=== PATIENT | female | born 2000 | race African-American/Black ===

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

== ENCOUNTER 2019-06-23 18:19 | Emergency (ER) | payer MEDICAID, OTHER, SELFPAY | END 2019-06-23 19:21 | disposition home or self-care (01) | LOC: ERS 18:19 | DX: M79.671 Pain in right foot (principal); V43.52XA Car driver injured in collision with other type car in traffic accident, initial encounter | CPT/HCPCS: 99284 ==